=== PATIENT | female | born 1950 | race Caucasian/White ===

== ENCOUNTER 2021-09-12 09:32 | Outpatient (CLI) | payer BC, SELFPAY | END 2021-09-12 09:33 | disposition home or self-care (01) | LOC: AMB 09-14 21:39 | PROVIDERS: Visit Provider Emergency Medicine | DX: I95.9 Hypotension, unspecified (principal); R06.09 Other forms of dyspnea | CPT/HCPCS: A0425; A0427 ==

== ENCOUNTER 2021-09-12 09:50 | Inpatient (IN) | payer MEDICARE, BC, SELFPAY ==
[2021-09-12] VITALS (14 sets, daily range): BP systolic 65–123; BP diastolic 40–78; PULSE 101–156; RESP 12–30; TEMP 36.3–37.1; O2SAT 95–100; BMI 26.0
[2021-09-12] MEDS: 0.9 % SODIUM CHLORIDE 1000 ml 1,000 ML IV (10:00)
--- NOTE | 2021-09-12 10:02 | XR_ITS ---
Final Report Patient: AYSE NOGUEIRA Facility:?[facility] Patient ID:?[id number] Site Patient ID:?[id number]. Site :?[id number] Study:?XRay Chest Portable 1 View-09/12/2021 10:24:47 AM Ordering Physician:Enrrique Blount Final Report: INDICATION: Shortness of breath. TECHNIQUE: Chest 1 views. COMPARISON: Chest radiograph 07/31/2021. FINDINGS: Cardiovascular and mediastinum: Heart size and vasculature are normal in caliber and appearance. Lungs and pleural spaces: Stable asymmetric elevation of the left hemidiaphragm. Minimal opacities in the left lower lobe. Otherwise the lungs are clear. No pleural effusion. No pneumothorax. Bones and soft tissues: No significant findings. IMPRESSION: Stable asymmetric elevation of left hemidiaphragm with mild consolidation/atelectasis in the left lower lobe. Dictated by Juan Carlos Mack MD @ 09/12/2021 10:59:43 AM (Electronic Signature)
[2021-09-12 10:36] LABS: Slide Review Reflex No
[2021-09-12 10:39] LABS: Hematocrit 27.4 % (33.0-51.0); Hemoglobin* 8.7 gm/dL (12.0-16.0); Immature Granulocytes Abs Auto 0.01 K/uL (0.00-0.30); Lymphocytes Percent Auto 9.8 % (20-44); Mean Corpuscular HGB Conc 32 gm/dL (32-36); Mean Corpuscular Hemoglobin 30 pg (26-34); Mean Corpuscular Volume 95 fL (80-100); Monocytes Percent Auto 10.7 % (0.0-11.0); Platelet Count* 266 K/uL (140-440); RDW Coefficient of Variation % 18.9 % (11.5-15.5); White Blood Count* 2.05 K/uL (4.50-11.00)
[2021-09-12 10:57] LABS: Chloride* 103 mmol/L (96-114); Sodium* 133 mmol/L (135-149)
[2021-09-12 10:59] LABS: Bilirubin Direct* 0.5 mg/dL (0.0-0.5); Bilirubin Total* 0.8 mg/dL (0.1-1.5); Carbon Dioxide* 23 mmol/L (20-32); Creatinine* 0.7 mg/dL (0.5-1.5); Estimated Glomerular Filt Rate 93.56
[2021-09-12 11:00] LABS: Alanine Aminotransferase* 68 U/L (4-35); Alkaline Phosphatase* 70 U/L (40-150); Aspartate Amino Transferase* 26 U/L (12-35); Blood Urea Nitrogen* 12 mg/dL (7-30); Glucose* 113 mg/dL (60-115); Total Protein* 5.8 g/dL (6.0-8.3)
[2021-09-12 11:11] LABS: Troponin I* 0.01 ng/mL (0.01-0.04)
[2021-09-12 11:28] LABS: INR 1.47 (0.91-1.10); Prothrombin Time 18.3 Seconds
--- NOTE | 2021-09-12 12:20 | ED.NURSE ---
Pt placed on O2 for comfort by RT.
[2021-09-12 13:12] LABS: Troponin I* 0.02 ng/mL (0.01-0.04)
--- NOTE | 2021-09-12 13:46 | ED.NURSE ---
heads up given to spinning supervisor
--- NOTE | 2021-09-12 15:07 | ED.GENADULT ---
HPI - General Adult General Date Seen: 09/12/21 Chief complaint: Shortness of Breath/Dyspnea Stated complaint: Shortness of Breath Time Seen by Provider: 09/12/21 09:57 Source: patient, EMS, RN notes reviewed and old records reviewed Limitations: no limitations History of Present Illness HPI narrative: Patient is a 70-year-old woman with past medical history notable for relatively recently diagnosed lung cancer, DVT, PE, atrial fibrillation with rapid ventricular response on Eliquis. She had gone to the radiation clinic across the street today for her standard radiation treatment. On arrival there, she was noted to have a heart rate in the 160s and low blood pressures. They also reported that she had low oxygen levels, and they reported at 1 point that her pulse had dropped into the 30s EMS was called. They noted tachycardia, hypotension with blood pressures in the 80s, but they did not note any hypoxia. Patient reports that she has felt poorly, with weakness, lightheadedness, shortness of breath, but all of these symptoms are unchanged over the past days to weeks. She specifically denies any acute symptoms today. She says she has not had any chest pain or worsening of shortness of breath. She says she has not had any fevers or chills. She does say that she has had a productive cough and was started on antibiotics by her primary doctor. She is still taking those. She is supposed to be on metoprolol for atrial fibrillation but says she ran out of that a few days ago. She says that the prescription is at the pharmacy but she has not picked it up yet. She does say that her blood pressures have been running low, so her dose was decreased from 50 mg to 25 mg. She has been taking her Eliquis as prescribed. She has no sensation of palpitations or her heart racing. She denies vomiting or nausea, she has had a little bit of diarrhea, 2 or 3 times. Denies any black or bloody stools. No urinary symptoms. Related Data Home Medications Medication Instructions Recorded Confirmed Lactobacillus acidophilus 20 10 mg PO DAILY 09/12/21 09/12/21 billion cell capsule (Florajen Acidophilus) acetaminophen 500 mg tablet 1,000 mg PO .TIDAC PRN 09/12/21 09/12/21 apixaban 5 mg tablet (Eliquis) 5 mg PO BID 09/12/21 09/12/21 cholecalciferol (vitamin D3) 25 1,000 unit PO DAILY 09/12/21 09/12/21 mcg (1,000 unit) capsule famotidine 20 mg tablet 20 mg PO BID 09/12/21 09/12/21 ipratropium 0.5 mg-albuterol 3 mg 3 ml INHALATION QID 09/12/21 09/12/21 (2.5 mg base)/3 mL nebulization soln magnesium oxide 400 mg (241.3 mg 400 mg PO DAILY 09/12/21 09/12/21 magnesium) tablet melatonin 3 mg capsule 3 mg PO HS PRN 09/12/21 09/12/21 metoprolol succinate 50 mg 25 mg PO DAILY 09/12/21 09/12/21 tablet,extended release 24 hr (Toprol XL) potassium chloride 20 mEq 20 meq PO DAILY 09/12/21 09/12/21 tablet,extended release prochlorperazine maleate 10 mg 10 mg PO Q6H PRN 09/12/21 09/12/21 tablet Allergies Allergy/AdvReac Type Severity Reaction Status Date / Time aspirin Allergy Severe Difficulty Verified 09/12/21 10:01 Breathing ibuprofen Allergy Unknown Verified 09/12/21 10:01 Sulfa (Sulfonamide Allergy Unknown Verified 09/12/21 11:33 Antibiotics) venlafaxine Allergy Unknown Verified 09/12/21 14:17 codeine AdvReac Mild Verified 09/12/21 10:01 diclofenac AdvReac Unknown Verified 09/12/21 14:17 fentanyl AdvReac Unknown Verified 09/12/21 14:17 fluoxetine AdvReac Unknown Verified 09/12/21 14:17 fluticasone AdvReac Unknown Verified 09/12/21 14:17 loratadine AdvReac Unknown Verified 09/12/21 14:17 meloxicam AdvReac Unknown Verified 09/12/21 14:17 nicotine AdvReac Unknown Verified 09/12/21 14:17 paroxetine AdvReac Unknown Verified 09/12/21 14:17 piroxicam AdvReac Unknown Verified 09/12/21 14:17 pregabalin AdvReac Unknown Verified 09/12/21 14:17 Review of Systems Status of ROS: Reports: 10 or more systems reviewed and unremarkable except as noted in History and below [facility] Medical History (Updated 09/12/21 @ 16:07 by Jared Walker MD) Anemia COPD (chronic obstructive pulmonary disease) Dyslipidemia Heart failure Paroxysmal atrial fibrillation Pneumonia Post-tubal ligation syndrome Pulmonary embolism Small cell lung cancer Surgical History H/O breast biopsy H/O colonoscopy H/O hemorrhoidectomy History of dilatation and curettage S/P bronchoscopy with biopsy Status post ectopic Social History (Updated 09/12/21 @ 16:25 by Jared Walker MD) Narrative: patient is from [place] where she lives alone. She was hospitalized at [facility] in [place] for most of the month of July and has been rehabilitating with her son and [id number] in [place] since her hospitalization. She is getting radiation treatment in [place] and chemotherapy with Dr. Lagunas in [place]. Physical activity type details: previously walked independently. During long hospitalization in July she was using a walker. She is now transition to a walking stick. She reports her left knee is sometimes weak and unstable. Smoking Status: Former smoker What tobacco products do you use: cigarettes Smoking quit date/years: <= 15 years ago Do you use any of these nicotine containing products: None Second hand tobacco smoke exposure: No How often do you have a drink containing alcohol: never AUDIT-C Alcohol total score: 0 Non-prescribed substance use: denies use Exam Const: Vital Signs, click to edit/add: Vital Signs - 24 hr 09/12/21 09:51 09/12/21 10:00 09/12/21 10:24 Temperature 97.3 F L Pulse Rate [Apical ] 146 H 156 H 135 H Pulse Rate [orthos tatic lying Apical ] Pulse Rate [orthos tatic sitting Apic al] Pulse Rate [orthos tatic standing Api ramesh] Respiratory Rate 28 H 30 H 18 Blood Pressure [Ri ght Upper Arm] 98/75 84/48 L 85/68 L Blood Pressure [or thostatic lying Ri ght Arm] Blood Pressure [or thostatic sitting Right Arm] Blood Pressure [or thostatic standing Right Arm] Pulse Oximetry 95 96 100 09/12/21 11:30 09/12/21 12:00 09/12/21 12:40 Temperature Pulse Rate [Apical ] 151 H 147 H 110 H Pulse Rate [orthos tatic lying Apical ] Pulse Rate [orthos tatic sitting Apic al] Pulse Rate [orthos tatic standing Api ramesh] Respiratory Rate 18 12 21 Blood Pressure [Ri ght Upper Arm] 79/59 L 65/40 L 97/60 Blood Pressure [or thostatic lying Ri ght Arm] Blood Pressure [or thostatic sitting Right Arm] Blood Pressure [or thostatic standing Right Arm] Pulse Oximetry 100 100 99 09/12/21 12:45 09/12/21 12:50 09/12/21 14:10 Temperature Pulse Rate [Apical ] 108 H 109 H Pulse Rate [orthos tatic lying Apical ] 106 H Pulse Rate [orthos tatic sitting Apic al] 110 H Pulse Rate [orthos tatic standing Api ramesh] 115 H Respiratory Rate 28 H 22 Blood Pressure [Ri ght Upper Arm] 102/66 86/48 L Blood Pressure [or thostatic lying Ri ght Arm] 93/50 L Blood Pressure [or thostatic sitting Right Arm] 94/62 Blood Pressure [or thostatic standing Right Arm] 84/56 L Pulse Oximetry 99 99 Documenting provider has reviewed patient's vital signs: yes Common normals: no apparent distress and oriented x3 General appearance: cooperative and frail appearing Nutritional appearance: thin Orientation/consciousness: Yes awake, Yes oriented to person, Yes oriented to place and Yes oriented to time HENMT: Common normals: normocephalic Head and scalp: normal to inspection (Hair loss due to chemotherapy) and normocephalic Face and sinus: normal facial exam Nose: nares normal Mouth: oral and palatal mucosa normal and lip normal Other: Mucous membranes a little dry. Eye: Common normals: PERRL, conjunctivae normal and no scleral icterus Conjunctiva: conjunctiva(e) normal Pupil: PERRL Neck & C-Spine: Common normals: no lymphadenopathy, supple, no meningeal signs and no JVD Chest: Common normals: inspection of chest normal Resp: Effort & inspection: able to speak in complete sentences Auscultation: diminished lung sounds (Left base, associated with some coarse crackles) Other: Lungs otherwise clear. Tachypneic, no increased work of breathing Cardio: Common normals: no JVD and no murmurs Rate: tachycardic Peripheral pulses: radial pulses present Other: Tachycardic and irregular. GI: Common normals: Normal to inspection, nondistended, normoactive bowel sounds present and soft to palpation Palpation: soft Rectal Exam - Female: normal sphincter tone Other: Light brown stool, heme-negative. : Common normals: no CVA tenderness Bladder/kidney exam: no CVA tenderness Back & Pelvis: Common normals: no CVA tenderness Lumbar spine/lower back: normal to inspection Extremity: Common normals: normal to inspection and no pedal edema Neuro: Common normals: oriented x3 Sensorium/orientation: awake, oriented to person, oriented to place and oriented to time Meningeal signs: no meningeal signs Speech: speech normal Psych: Common normals: mental status grossly normal, thought process normal and cooperative Thought process: normal thought process Skin: Common normals: no rashes or lesions noted, no wounds, no jaundice and no petechiae General skin exam: no rashes or lesions noted Course Course Hospital Course: On initial arrival, paramedics had started an IV and she had had about 100 mL of fluid at that time. We started a 2nd IV, lisa blood and blood cultures. We gave her a total of about a L and half of normal saline. I did look at her heart with the bedside ultrasound. She has reasonable ventricular squeeze, I did not see significant pericardial effusion. IVC was compressible. No intra-abdominal free fluid. She did not have significant response to IV fluids, and continued to have blood pressures in the 80s to low 90s. Her heart rate remained in atrial fibrillation running in the 140s to 160s. Labs are overall fairly unremarkable. Her white blood cell count is low at 2, absolute neutrophil count is 1600. Hemoglobin is 8.7. Review of her records from [place] shows a steady decline in her hemoglobin from 11 and half down to 9.3 over the past month. She is heme negative here and denies any GI blood loss at home. She is not febrile, and and there is no clear source of infection here. I did draw blood cultures however. A chest x-ray by my review shows chronic findings at the left base, but without any significant new infiltrate. The final radiology report is read as stable asymmetric elevation of the left hemidiaphragm with mild consolidation or atelectasis in left lower lobe. Plan had been to cardiovert her, thinking that perhaps her rapid AFib was contributing to her hypotension. I did talk with Cardiology at [facility], she had an echo there July 20 which showed an injection fraction of 50%, they repeated it July 29 in her ejection fraction at that time was 42%. He did recommend cardioversion to improve her blood pressure. However, just as we were getting ready to cardiovert, she converted to sinus rhythm. Her heart rate remained in the low 100 range, and while her blood pressures improved somewhat, she still was in the low 90s, and on standing dropped into the 80s. She was somewhat lightheaded. I do not think she is able to go home at this point based on somewhat low blood pressures. Would recommend admission to the hospital for observation, consider antibiotics for possible pneumonia. In talking with the hospitalist, Dr. Walker, he agrees with adding antibiotics; we will go ahead and give Zosyn here given that patient has been on amoxicillin or Augmentin, and was hospitalized in July. Given that blood pressures are not markedly improved after conversion to sinus rhythm I do not think her primary problem was depressed cardiac function secondary to rapid ventricular rate/atrial fibrillation. Abscess is possible, though she did not show any improvement with fluid bolus. Cultures pending. Hemoglobin has decreased from the beginning of the month, although it has been a slow decrease, more likely to be related to her chemotherapy I think then in acute blood loss. No obvious GI blood losses and she does not report any other blood loss. I do not see a clear reason to hold or reverse her Eliquis at this time. For now, I think continue to hydrate, IV antibiotics, await cultures. Observation in the hospital. Vital Signs Vital signs: Initial Vital Signs Respiratory Effort Short of Breath 09/12/21 09:50 Respiratory Depth Shallow 09/12/21 09:50 Respiratory Pattern 09/12/21 09:50 Vital Signs Temperature 97.3 F L 09/12/21 09:51 Pulse Rate 146 H 09/12/21 09:51 Respiratory Rate 28 H 09/12/21 09:51 Blood Pressure 98/75 09/12/21 09:51 Pulse Oximetry 95 09/12/21 09:51 Temperature 97.3 F L 09/12/21 09:51 Pulse Rate 106 H 09/12/21 14:10 Respiratory Rate 22 09/12/21 12:50 Blood Pressure 93/50 L 09/12/21 14:10 Pulse Oximetry 99 09/12/21 12:50 Medical Decision Making Lab Data Labs: Lab Results 09/12/21 09/12/21 09/12/21 Range/Units 10:28 10:28 10:28 WBC 2.05 L (4.50-11.00) K/uL RBC 2.90 L (4.00-5.20) m/uL Hgb 8.7 L (12.0-16.0) gm/dL Hct 27.4 L (33.0-51.0) % MCV 95 (80-100) fL MCH 30 (26-34) pg MCHC 32 (32-36) gm/dL RDW Coeff of Jaclyn 18.9 H (11.5-15.5) % Plt Count 266 (140-440) K/uL Neut % (Auto) 79.0 H (42.0-72.0) % Lymph % (Auto) 9.8 L (20-44) % Pettis % (Auto) 10.7 (0.0-11.0) % Eos % (Auto) 0.0 (0.0-7.0) % Baso % (Auto) 0.0 (0.0-3.0) % Neut # (Auto) 1.60 L (1.7-7.0) K/uL Lymph # (Auto) 0.20 L (0.90-2.90) K/uL Pettis # (Auto) 0.20 (0.00-0.90) K/UL Eos # (Auto) 0.00 (0.00-0.50) K/uL Baso # (Auto) 0.00 (0.00-0.30) K/uL Abs Immat Gran (auto) 0.01 (0.00-0.30) K/uL INR 1.47 H (0.91-1.10) Sodium 133 L (135-149) mmol/L Potassium 4.0 (3.6-5.1) mmol/L Chloride 103 (96-114) mmol/L Carbon Dioxide 23 (20-32) mmol/L BUN 12 (7-30) mg/dL Creatinine 0.7 (0.5-1.5) mg/dL Glucose 113 (60-115) mg/dL Calcium 8.0 L (8.4-10.6) mg/dL Total Bilirubin 0.8 (0.1-1.5) mg/dL Direct Bilirubin 0.5 (0.0-0.5) mg/dL AST 26 (12-35) U/L ALT 68 H (4-35) U/L Alkaline Phosphatase 70 (40-150) U/L Troponin I 0.01 (0.01-0.04) ng/mL Total Protein 5.8 L (6.0-8.3) g/dL Albumin 3.0 L (3.3-5.0) g/dL 09/12/21 Range/Units 12:33 WBC (4.50-11.00) K/uL RBC (4.00-5.20) m/uL Hgb (12.0-16.0) gm/dL Hct (33.0-51.0) % MCV (80-100) fL MCH (26-34) pg MCHC (32-36) gm/dL RDW Coeff of Jaclyn (11.5-15.5) % Plt Count (140-440) K/uL Neut % (Auto) (42.0-72.0) % Lymph % (Auto) (20-44) % Pettis % (Auto) (0.0-11.0) % Eos % (Auto) (0.0-7.0) % Baso % (Auto) (0.0-3.0) % Neut # (Auto) (1.7-7.0) K/uL Lymph # (Auto) (0.90-2.90) K/uL Pettis # (Auto) (0.00-0.90) K/UL Eos # (Auto) (0.00-0.50) K/uL Baso # (Auto) (0.00-0.30) K/uL Abs Immat Gran (auto) (0.00-0.30) K/uL INR (0.91-1.10) Sodium (135-149) mmol/L Potassium (3.6-5.1) mmol/L Chloride (96-114) mmol/L Carbon Dioxide (20-32) mmol/L BUN (7-30) mg/dL Creatinine (0.5-1.5) mg/dL Glucose (60-115) mg/dL Calcium (8.4-10.6) mg/dL Total Bilirubin (0.1-1.5) mg/dL Direct Bilirubin (0.0-0.5) mg/dL AST (12-35) U/L ALT (4-35) U/L Alkaline Phosphatase (40-150) U/L Troponin I 0.02 (0.01-0.04) ng/mL Total Protein (6.0-8.3) g/dL Albumin (3.3-5.0) g/dL Critical Care Time Critical Care Time Total Critical Care Time in Minutes: 60 Discharge Plan Discharge Clinical Impression: Atrial fibrillation with RVR Patient Disposition: Admitted As Inpatient Condition: Improved
--- NOTE | 2021-09-12 15:16 | RESP.RT ---
Pt seen in ED. RR 20-28 Pt tachypneic at times, with speech. SPO2 on RA was 94%/ Low flow oxygen at 2L given for comfort. 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 Pt states she has been coughing up foul phlegm. Encourage ambulation or sitting up in chair. BBS decreased with coarse Rales in bases. IS pt.
--- NOTE | 2021-09-12 15:40 | ED.NURSE ---
Admit request sent, m/s aware.
--- NOTE | 2021-09-12 15:44 | W.PC.EDHO ---
Primary Language: Yoruba Preferred Language: Orientation Status: [X] Alert & Oriented [] Slight Confusion [] Known Dx Dementia Transfers By: [X] Assist of 1 [] Assist of 2 [] Lift IV Size: 18g IV Site Location: L-AC Pt is very kind. Has some c/o pain on her bottom (possibly a sore?) per her report. Active Medications Generic Name Dose Route Start Last Admin Trade Name Freq PRN Reason Stop Dose Admin Acetaminophen 650 - 975 mg 09/12/21 15:05 Acetaminophen 325 Mg Tablet PO Q6H PRN Bisacodyl 10 mg 09/12/21 15:05 Bisacodyl 10 Mg Supp.Rect SC DAILY PRN Melatonin 3 mg 09/12/21 15:05 Melatonin 3 Mg Tablet PO HS PRN Oxycodone HCl 2.5 - 5 mg 09/12/21 15:05 Oxycodone 5 Mg Tablet PO Q4H PRN Pain Polyethylene Glycol 17 gm 09/12/21 15:05 Polyethylene Glycol 3350 17 Gm Pack PO DAILY PRN Senna/Docusate Sodium 1 tab 09/12/21 15:05 Sennosides/Docusate Tablet PO DAILY PRN Description of Symptoms ED Triage Present Problem Pt arrives from radiation clinic for dyspnea, Description tachycardia, and weakness. Pain Pain Description [Medial Dull, Achy Buttock] Pain Intensity [Medial Buttock 3 ] Pain Scale Used [Medial Numeric (1 - 10) Buttock] Oxygen Administration Pulse Oximetry 99 Pulse Oximetry 99 Pulse Oximetry 99 Pulse Oximetry 100 Pulse Oximetry 100 Pulse Oximetry 100 Pulse Oximetry 96 Pulse Oximetry 96 Pulse Oximetry 95 Oxygen Delivery Method Nasal Cannula Oxygen Delivery Method Nasal Cannula Oxygen Delivery Method Nasal Cannula Oxygen Delivery Method Nasal Cannula Oxygen Delivery Method Nasal Cannula Oxygen Delivery Method Nasal Cannula Oxygen Delivery Method Nasal Cannula Oxygen Delivery Method Nasal Cannula Oxygen Delivery Method Room Air Oxygen Flow Rate 2 Oxygen Flow Rate 2 Oxygen Flow Rate 2 Oxygen Flow Rate 2 Oxygen Flow Rate 2 Oxygen Flow Rate 2 Oxygen Flow Rate 2 Oxygen Flow Rate 2 Cardiac Monitoring EKG Method 12 Lead EKG Method 12 Lead EKG Method 12 Lead EKG Method 12 Lead
[2021-09-12 16:21] LABS: SARS PCR* Negative SARS-CoV-2 (Negative)
--- NOTE | 2021-09-12 16:24 | PM.IMHP1 ---
Hospitalist- H&P: HPI History of Present Illness Time Seen by Provider: 15:14 Date Seen: 09/12/21 Chief complaint: Shortness of Breath Narrative: Shannon Castrejon is a 70 year old female presents with worsening dyspnea. Patient has recently been diagnosed with squamous cell carcinoma of the left lung. She had collapse of her left lung in July. She was treated at [facility] in [place] with bronchoscopic surgery. They debulked the tumor and placed a silicone stent in the left mainstem bronchus. she also had pulmonary emboli and was started with treatment with Eliquis. She also had paroxysmal atrial fibrillation and was placed on metoprolol. She has been undergoing chemotherapy with carboplatin and paclitaxel and getting radiation therapy. She today had her 29th of 30 radiation treatments. She was supposed to get her final chemotherapy today but came to the emergency room because of dyspnea instead. She has had a bad cough and she tells me she has a foul-smelling sputum. It is yellow in color. She has not had any fever but she does have chills. She does have COPD from smoking. Recently stop smoking. she has been treated recently with an antibiotic , possibly amoxicillin, for her productive cough and discolored sputum. Review of Systems Const: Reports: chills ( Episodic chills), fatigue and malaise; Denies: fever ENMT: Reports: throat pain and other ( patient reports chest pain when she drinks cold liquids) Cardio: Reports: lightheadedness and shortness of breath with exertion; Denies: palpitations ( she is not aware of atrial fibrillation with rapid or irregular pulse), swelling of feet/ankles or shortness of breath when lying down Resp: Reports: shortness of breath GI: Reports: diarrhea ( possibly due to chemotherapy), constipation ( probably due to oxycodone) and other ( loss of appetite) : Denies: painful urination or urinary frequency Neuro: Denies: headache Psych: Reports: anxiety Endo: Reports: fatigue PFSH [facility] Medical History (Updated 09/12/21 @ 16:07 by Jared Walker MD) Anemia COPD (chronic obstructive pulmonary disease) Dyslipidemia Heart failure Paroxysmal atrial fibrillation Pneumonia Post-tubal ligation syndrome Pulmonary embolism Small cell lung cancer Surgical History H/O breast biopsy H/O colonoscopy H/O hemorrhoidectomy History of dilatation and curettage S/P bronchoscopy with biopsy Status post ectopic Social History Narrative: patient is from [place] where she lives alone. She was hospitalized at [facility] in [place] for most of the month of July and has been rehabilitating with her son and [id number] in [place] since her hospitalization. She is getting radiation treatment in [place] and chemotherapy with Dr. Lagunas in [place]. Physical activity type details: previously walked independently. During long hospitalization in July she was using a walker. She is now transition to a walking stick. She reports her left knee is sometimes weak and unstable. Smoking Status: Former smoker What tobacco products do you use: cigarettes Smoking quit date/years: <= 15 years ago Do you use any of these nicotine containing products: None Second hand tobacco smoke exposure: No How often do you have a drink containing alcohol: never AUDIT-C Alcohol total score: 0 Non-prescribed substance use: denies use Narrative Narrative: patient is from [place] where she lives alone. She was hospitalized at [facility] in [place] for most of the month of July and has been rehabilitating with her son and [id number] in [place] since her hospitalization. She is getting radiation treatment in [place] and chemotherapy with Dr. Lagunas in [place]. Physical and Leisure Activity Physical activity type details: previously walked independently. During long hospitalization in July she was using a walker. She is now transition to a walking stick. She reports her left knee is sometimes weak and unstable. Tobacco Smoking Status: Former smoker What tobacco products do you use: cigarettes Smoking quit date/years: <= 15 years ago Do you use any of these nicotine containing products: None Second hand tobacco smoke exposure: No Alcohol - AUDIT-C How often do you have a drink containing alcohol: never AUDIT-C Alcohol total score: 0 Source: Developed by Caity Peace DR, et al (1998). The AUDIT alcohol consumption questions (AUDIT-C): An effective brief screening test for problem drinking. [employer] (ACQUIP). [employer]. 158:1789-95. Drugs Non-prescribed substance use: denies use Meds Home Medications and Allergies Home Medications Medication Instructions Recorded Confirmed Type Lactobacillus acidophilus 20 10 mg PO DAILY 09/12/21 09/12/21 History billion cell capsule (Florajen Acidophilus) acetaminophen 500 mg tablet 1,000 mg PO .TIDAC PRN 09/12/21 09/12/21 History apixaban 5 mg tablet (Eliquis) 5 mg PO BID 09/12/21 09/12/21 History cholecalciferol (vitamin D3) 25 1,000 unit PO DAILY 09/12/21 09/12/21 History mcg (1,000 unit) capsule famotidine 20 mg tablet 20 mg PO BID 09/12/21 09/12/21 History ipratropium 0.5 mg-albuterol 3 mg 3 ml INHALATION QID 09/12/21 09/12/21 History (2.5 mg base)/3 mL nebulization soln magnesium oxide 400 mg (241.3 mg 400 mg PO DAILY 09/12/21 09/12/21 History magnesium) tablet melatonin 3 mg capsule 3 mg PO HS PRN 09/12/21 09/12/21 History metoprolol succinate 50 mg 25 mg PO DAILY 09/12/21 09/12/21 History tablet,extended release 24 hr (Toprol XL) potassium chloride 20 mEq 20 meq PO DAILY 09/12/21 09/12/21 History tablet,extended release prochlorperazine maleate 10 mg 10 mg PO Q6H PRN 09/12/21 09/12/21 History tablet Allergies Allergy/AdvReac Type Severity Reaction Status Date / Time aspirin Allergy Severe Difficulty Verified 09/12/21 10:01 Breathing ibuprofen Allergy Unknown Verified 09/12/21 10:01 Sulfa (Sulfonamide Allergy Unknown Verified 09/12/21 11:33 Antibiotics) venlafaxine Allergy Unknown Verified 09/12/21 14:17 codeine AdvReac Mild Verified 09/12/21 10:01 diclofenac AdvReac Unknown Verified 09/12/21 14:17 fentanyl AdvReac Unknown Verified 09/12/21 14:17 fluoxetine AdvReac Unknown Verified 09/12/21 14:17 fluticasone AdvReac Unknown Verified 09/12/21 14:17 loratadine AdvReac Unknown Verified 09/12/21 14:17 meloxicam AdvReac Unknown Verified 09/12/21 14:17 nicotine AdvReac Unknown Verified 09/12/21 14:17 paroxetine AdvReac Unknown Verified 09/12/21 14:17 piroxicam AdvReac Unknown Verified 09/12/21 14:17 pregabalin AdvReac Unknown Verified 09/12/21 14:17 Exam Narrative: Exam Narrative: She is alert and in no distress. She gives her own history. She struggles to recall significant details of recent past medical history including medications. She is oriented to her circumstances. Her speech is fluent. Eyes are normal. There is no facial asymmetry. Oropharynx with moist mucous membranes. No mucosal abnormalities. Neck is supple without mass or adenopathy. Respirations with diminished breath sounds in all lung [place] no marked prolonged expiratory phase. No wheezing. She has scattered crackles in left lung field. Breath sounds are diminished in the left lung compared to the right. Cardiovascular: S1, S2, regular tachycardia. No murmur gallop or rub. Abdomen: Bowel sounds active. Abdomen is soft without tenderness or mass. External genitalia normal. Extremities with intact pulses and sensation. Feet are somewhat cool to touch. No edema And no tenderness.. Const: Vital Signs, click to edit/add: Vital Signs - 24 hr 09/12/21 09:51 09/12/21 10:00 09/12/21 10:24 Temperature 97.3 F L Pulse Rate [Apical ] 146 H 156 H 135 H Pulse Rate [orthos tatic lying Apical ] Pulse Rate [orthos tatic sitting Apic al] Pulse Rate [orthos tatic standing Api ramesh] Respiratory Rate 28 H 30 H 18 Blood Pressure [Ri ght Upper Arm] 98/75 84/48 L 85/68 L Blood Pressure [or thostatic lying Ri ght Arm] Blood Pressure [or thostatic sitting Right Arm] Blood Pressure [or thostatic standing Right Arm] Pulse Oximetry 95 96 100 09/12/21 11:30 09/12/21 12:00 09/12/21 12:40 Temperature Pulse Rate [Apical ] 151 H 147 H 110 H Pulse Rate [orthos tatic lying Apical ] Pulse Rate [orthos tatic sitting Apic al] Pulse Rate [orthos tatic standing Api ramesh] Respiratory Rate 18 12 21 Blood Pressure [Ri ght Upper Arm] 79/59 L 65/40 L 97/60 Blood Pressure [or thostatic lying Ri ght Arm] Blood Pressure [or thostatic sitting Right Arm] Blood Pressure [or thostatic standing Right Arm] Pulse Oximetry 100 100 99 09/12/21 12:45 09/12/21 12:50 09/12/21 14:10 Temperature Pulse Rate [Apical ] 108 H 109 H Pulse Rate [orthos tatic lying Apical ] 106 H Pulse Rate [orthos tatic sitting Apic al] 110 H Pulse Rate [orthos tatic standing Api ramesh] 115 H Respiratory Rate 28 H 22 Blood Pressure [Ri ght Upper Arm] 102/66 86/48 L Blood Pressure [or thostatic lying Ri ght Arm] 93/50 L Blood Pressure [or thostatic sitting Right Arm] 94/62 Blood Pressure [or thostatic standing Right Arm] 84/56 L Pulse Oximetry 99 99 Hospitalist - H&P: Result Labs Labs: Short CBC 09/12/21 Range/Units 10:28 WBC 2.05 L (4.50-11.00) K/uL Hgb 8.7 L (12.0-16.0) gm/dL Hct 27.4 L (33.0-51.0) % Plt Count 266 (140-440) K/uL BMP 09/12/21 10:28 Sodium 133 L Potassium 4.0 Chloride 103 Carbon Dioxide 23 BUN 12 Creatinine 0.7 Glucose 113 Calcium 8.0 L Cardiac Enzymes 09/12/21 09/12/21 Range/Units 10:28 12:33 Troponin I 0.01 0.02 (0.01-0.04) ng/mL Liver Function 09/12/21 Range/Units 10:28 Total Bilirubin 0.8 (0.1-1.5) mg/dL Direct Bilirubin 0.5 (0.0-0.5) mg/dL AST 26 (12-35) U/L ALT 68 H (4-35) U/L Alkaline Phosphatase 70 (40-150) U/L Albumin 3.0 L (3.3-5.0) g/dL Assessment and Plan Assessment and plan (1) Paroxysmal atrial fibrillation: Status: Acute (2) Atrial fibrillation with RVR: Status: Acute (3) Pneumonia: Status: Acute (4) Anemia: Status: Acute Plan acute on chronic dyspnea related to a combination of factors including atrial fibrillation with rapid ventricular response, possible pneumonia with recent antibiotic therapy and recent hospitalization , COPD, cancer obstructing her left mainstem bronchus status post treatment, acute on chronic anemia. I suspect that she is in an out of atrial fibrillation with RVR more often than she is aware. She is not aware of her atrial fibrillation except to the extent that she gets dyspneic when she is in AFib with RVR. I spoke with Cardiology at [facility] who recommended using metoprolol for rate control and managing her low blood pressure with fluids. Continue close monitoring of heart rate and blood pressure. Will treat her with antibiotics for possible pneumonia given her lung cancer history and ongoing problems with discolored and malodorous sputum. Will also monitor her hemoglobin and monitor for any bleeding. I suspect her hemoglobin may be low due to bone marrow suppression from her chemotherapy.
[2021-09-12 16:36] LABS: Immature Reticulocyte Fraction 13.1 % (3.0-15.9); Reticulocyte Percent 0.4 % (0.5-2.0); Reticulocytes Absolute 0.01 # (0.03-0.08)
--- NOTE | 2021-09-12 16:53 | ED.NURSE ---
Pt voided 250cc. Urine to lab.
[2021-09-12 17:00] LABS: Appearance Urine Clear (Clear); Bilirubin Urine Negative (Negative); Color Urine Yellow (Yellow); Glucose Urine Negative (Negative); Ketones Urine Negative (Negative); Leukocyte Esterase Urine Negative (Negative); Nitrite Urine Negative (Negative); Protein Urine Negative (Negative); Specific Gravity Urine 1.015 (1.000-1.030); Urobilinogen Urine 0.2 (0.2-1.0); pH Urine 6.5 (5.0-8.5)
[2021-09-12 17:04] LABS: Blood Urine Trace-Intact (Negative); RBC Urine 0-2 (0-2); Squamous Epithelial Cell Urine Few (None-Few)
[2021-09-12 17:05] LABS: Reticulocyte Hemoglobin Equivi 16.2 pg (29.0-35.0)
[2021-09-12] MEDS: PIPERACILLIN/TAZOBACTAM 3.375 GM in 0.9 % SODIUM CHLORIDE Mini-bag 100 ML IVPB (19:33)
[2021-09-12] MEDS: ACETAMINOPHEN 500 MG TABLET 1000 MG PO (19:45)
[2021-09-12] MEDS: APIXABAN 5 MG TABLET PO (21:01)
[2021-09-12] MEDS: FAMOTIDINE 20 MG TABLET PO (21:01)
[2021-09-12] MEDS: IPRAT-ALBUT 0.5-2.5 MG/3 ML NEB 1 NEB IH (21:01)
[2021-09-13] VITALS (9 sets, daily range): BP systolic 111–127; BP diastolic 56–77; PULSE 100–116; RESP 18–24; TEMP 36.4–36.8; O2SAT 94–99
[2021-09-13] MEDS: PIPERACILLIN/TAZOBACTAM 3.375 GM in 0.9 % SODIUM CHLORIDE Mini-bag 100 ML IVPB ×4 (01:12→19:04)
[2021-09-13] MEDS: SODIUM CHLORIDE 0.9 % (FLUSH) 10 ML SYRINGE IVF ×3 (01:59→20:25)
--- NOTE | 2021-09-13 05:29 | PC.NURSE ---
Addendum entered by Guero Barrios RN 09/13/21 07:19: Tylenol given for sore throat radiating to ear Original Note: VSS RA. Tele Sinus Tach about 100 w/occ PAC. Lungs sound has a rub on the left. Has a congested cough cream sputum. Up ad chely in room using her own walking stick ind w/cares.
[2021-09-13 06:54] LABS: Slide Review Reflex No
[2021-09-13 07:11] LABS: Basophils Percent Auto 0.7 % (0.0-3.0); Eosinophils Percent Auto 0.7 % (0.0-7.0); Hematocrit 25.3 % (33.0-51.0); Hemoglobin* 8.3 gm/dL (12.0-16.0); Immature Granulocytes Abs Auto 0.01 K/uL (0.00-0.30); Lymphocytes Percent Auto 16.4 % (20-44); Mean Corpuscular HGB Conc 33 gm/dL (32-36); Mean Corpuscular Hemoglobin 31 pg (26-34); Mean Corpuscular Volume 93 fL (80-100); Monocytes Percent Auto 17.1 % (0.0-11.0); Neutrophils Percent Auto 64.4 % (42.0-72.0); Platelet Count* 244 K/uL (140-440); RDW Coefficient of Variation % 18.8 % (11.5-15.5); Red Blood Count 2.72 m/uL (4.00-5.20)
[2021-09-13] MEDS: ACETAMINOPHEN 325 MG TABLET PO (07:12)
[2021-09-13 07:32] LABS: Chloride* 105 mmol/L (96-114); Sodium* 134 mmol/L (135-149)
[2021-09-13 07:33] LABS: Potassium* 3.8 mmol/L (3.6-5.1)
[2021-09-13 07:35] LABS: Carbon Dioxide* 24 mmol/L (20-32); Creatinine* 0.6 mg/dL (0.5-1.5); Est. Creatinine Clearance* 43.92
[2021-09-13 07:36] LABS: Blood Urea Nitrogen* 10 mg/dL (7-30); Calcium* 8.5 mg/dL (8.4-10.6); Glucose* 91 mg/dL (60-115)
[2021-09-13] MEDS: FAMOTIDINE 20 MG TABLET PO ×2 (09:02→20:21)
[2021-09-13] MEDS: MAGNESIUM OXIDE 400 MG TABLET PO (09:03)
[2021-09-13] MEDS: METOPROLOL SUCCINATE (XL) 50 MG TAB 25 MG PO (09:03)
[2021-09-13] MEDS: APIXABAN 5 MG TABLET PO ×2 (09:04→20:22)
[2021-09-13] MEDS: POTASSIUM CHLORIDE 10 MEQ CAPSULE ER 20 MEQ PO (09:05)
[2021-09-13] MEDS: IPRAT-ALBUT 0.5-2.5 MG/3 ML NEB 1 NEB IH ×4 (09:06→20:24)
[2021-09-13] MEDS: LACTOBACILLUS ACIDOPHILUS 1 TABLET 1 TAB PO (09:10)
--- NOTE | 2021-09-13 15:21 | PM.IMPN1 ---
Progress Note: A&P Assessment and plan (1) Squamous cell lung cancer: Status: Acute Assessment and Plan: Plan is speak with her oncology team about any break or possible cessation of chemotherapy. She received 29 of a 30 radiation treatments. Patient is interested in taking a break and moving on to immunotherapy if indicated. (2) Pneumonia: Status: Acute Assessment and Plan: Was previously postobstructive, related to newfound left lung cancer. However she is still coughing up malodorous copious sputum. It is difficult to track her response with a white blood cell count given her history of chemotherapy and chemotherapy-induced neutropenia. She has not had any fever. Going to reimage her chest today with a chest CT and following with procalcitonin. She is currently on broad-spectrum antibiotics was Zosyn q.6. (3) Atrial fibrillation with RVR: Status: Acute Assessment and Plan: Currently now in sinus. I have increased her metoprolol to 25 b.i.d. with hold parameters. I switched also from this Toprol XL succinate to the metoprolol tartrate. (4) Chemotherapy induced neutropenia: Status: Acute Assessment and Plan: Noted following. (5) History of pulmonary embolism: Status: Acute Assessment and Plan: Noted following. Time Spent With Patient Total time spent: Thirty-five Subjective Interval history: Daily Progress Note - Hospital Medicine Day #: 2 CC: Hypotension, AFib RVR, small cell lung cancer OVERNIGHT UPDATES FROM STAFF & MED, LAB, IMAGING UPDATES This is a 70-year-old with locally extensive squamous cell lung cancer of the left lung diagnosed earlier this year who presented after feeling poorly during radiation yesterday. She was found to be hypotensive and in AFib with RVR. She is neutropenic and anemic from her current chemotherapy. She converted to sinus yesterday in the ED spontaneously. She feels lot better today with a better blood pressure and pulse. There over writing issues continue to be the effects of chemotherapy, planning for returning home which is [place] and some social stressors living with her son. 120/72, 126/68 Pulse has been low 100s Respiratory rate 18 Pulse ox 96% on room air Weight 66.6 kilos Neutropenia ANC of 896 Hemoglobin 8.3 Platelet count 244 Normal electrolytes with just a very mild hyponatremia Procalcitonin pending Chest x-ray yesterday Stable asymmetric elevation of the left hemidiaphragm Review of Systems: See subjective Cardiac: No new chest pain/pressure/palpitations. Respiratory: no new dyspnea. GI: No abdominal bloating Objective: Chronically ill-appearing. Thin, Alopecia, pale. Vitals: see above Lungs: No respiratory distress. Diffuse rhonchi at the bases Cardiac: S1S2. Disposition/Potential discharge - Likely to return to previous living situation. Total time is 35 minutes with greater than 50% spent in counseling and coordination of care. Exam Const: Vital Signs, click to edit/add: Vital Signs - 24 hr 09/12/21 16:50 09/12/21 17:19 09/12/21 18:27 Temperature 98.8 F Pulse Rate Pulse Rate [Apical ] 101 H Pulse Rate [Right] 103 H Respiratory Rate 20 16 Blood Pressure [Ri ght Arm] 123/78 Blood Pressure [Ri ght Upper Arm] 119/57 L Pulse Oximetry 95 96 95 09/12/21 21:04 09/12/21 23:06 09/13/21 00:43 Temperature 98.8 F 97.8 F Pulse Rate 101 H Pulse Rate [Apical ] Pulse Rate [Right] 103 H Respiratory Rate 24 Blood Pressure [Ri ght Arm] 111/66 Blood Pressure [Ri ght Upper Arm] Pulse Oximetry 94 09/13/21 03:02 09/13/21 08:00 09/13/21 08:30 Temperature 98.2 F 97.8 F Pulse Rate 109 H Pulse Rate [Apical ] Pulse Rate [Right] 103 H 103 H 106 H Respiratory Rate 20 22 Blood Pressure [Ri ght Arm] 119/71 126/68 Blood Pressure [Ri ght Upper Arm] Pulse Oximetry 95 94 09/13/21 14:34 Temperature 97.6 F Pulse Rate Pulse Rate [Apical ] Pulse Rate [Right] 100 Respiratory Rate 18 Blood Pressure [Ri ght Arm] 120/72 Blood Pressure [Ri ght Upper Arm] Pulse Oximetry 96 Labs Labs: Laboratory Results - last 24 hr 09/12/21 09/12/21 09/12/21 10:28 15:21 16:30 WBC RBC Hgb Hct MCV MCH MCHC RDW Coeff of Jaclyn Plt Count Neut % (Auto) Lymph % (Auto) Barton % (Auto) Eos % (Auto) Baso % (Auto) Neut # (Auto) Lymph # (Auto) Barton # (Auto) Eos # (Auto) Baso # (Auto) Abs Immat Gran (auto) Absolute Retic 0.01 L Percent Retic 0.4 L Immature Retic Fraction 13.1 Retic Hgb Equivalent 16.2 L Sodium Potassium Chloride Carbon Dioxide BUN Creatinine Estimated Creat Clear Glucose Calcium Urine Color Yellow Urine Appearance Clear Urine pH 6.5 Ur Specific Ryan 1.015 Urine Protein Negative Urine Glucose (UA) Negative Urine Ketones Negative Urine Blood Trace-Intact A Urine Nitrite Negative Urine Bilirubin Negative Urine Urobilinogen 0.2 Ur Leukocyte Esterase Negative Urine RBC 0-2 Urine WBC 2-5 Ur Squamous Epith Cells Few Urine Bacteria None SARS-CoV-2 (PCR) Negative SARS-CoV-2 09/13/21 09/13/21 06:39 06:39 WBC 1.40 L* RBC 2.72 L Hgb 8.3 L Hct 25.3 L MCV 93 MCH 31 MCHC 33 RDW Coeff of Jaclyn 18.8 H Plt Count 244 Neut % (Auto) 64.4 Lymph % (Auto) 16.4 L Barton % (Auto) 17.1 H Eos % (Auto) 0.7 Baso % (Auto) 0.7 Neut # (Auto) 0.90 L Lymph # (Auto) 0.20 L Barton # (Auto) 0.20 Eos # (Auto) 0.00 Baso # (Auto) 0.00 Abs Immat Gran (auto) 0.01 Absolute Retic Percent Retic Immature Retic Fraction Retic Hgb Equivalent Sodium 134 L Potassium 3.8 Chloride 105 Carbon Dioxide 24 BUN 10 Creatinine 0.6 Estimated Creat Clear 43.92 Glucose 91 Calcium 8.5 Urine Color Urine Appearance Urine pH Ur Specific Ryan Urine Protein Urine Glucose (UA) Urine Ketones Urine Blood Urine Nitrite Urine Bilirubin Urine Urobilinogen Ur Leukocyte Esterase Urine RBC Urine WBC Ur Squamous Epith Cells Urine Bacteria SARS-CoV-2 (PCR)
--- NOTE | 2021-09-13 15:33 | CT_ITS ---
Final Report Patient: AYSE NOGUEIRA Facility:?[facility] Patient ID:?[id number] Site Patient ID:?[id number]. Site :?[id number] Study:?CT Chest PE W/ISOVUE 370 95CC-09/13/2021 5:11:41 PM Ordering Physician:Raffy Armendariz Final Report: INDICATION: Left lung cancer, status post debulking/stent. Ongoing cough and sputum.. TECHNIQUE: CT chest PE was acquired with 95 cc Isovue 370 IV contrast. COMPARISON: Chest radiographs from September 12, 2021 and July 31, 2021.. FINDINGS: Heart and vasculature: Contrast opacification of the pulmonary arterial tree is adequate. No sign of pulmonary embolism. Heart size is normal. Coronary artery calcifications are noted. Thoracic aorta and pulmonary artery are normal in caliber. Lungs and pleura: Patchy ground-glass and consolidative opacities are identified in the left lower lobe. A few patchy opacities are also noted within the periphery of the lingula. There is mucous plugging within the left lower lobe. Narrowing of the bronchi and bronchioles extending into the lingula and left lower lobe. The stent is identified within the left mainstem bronchus. No pleural effusions, pleural thickening, or pneumothorax. Lymph nodes/mediastinum: Significant soft tissue attenuation surrounds the left mainstem bronchus with irregular margins. This extends into the AP window and prevascular space (-). The soft tissue also extends into the left hilar region and subcarinal region (). Soft tissue thickening surrounding the left mainstem bronchus and extending into the bronchi of the left upper and lower lobes. There is apposition of the soft tissue attenuation along the mid esophagus. Invasion of the esophagus is not entirely excluded. New portions of the soft tissue attenuation extend to the right mainstem bronchus as well. No right hilar lymphadenopathy is identified. Chest wall: No masses. Upper abdomen: Small hiatal hernia. Bones: Demineralization of visualized bones. IMPRESSION: 1. No pulmonary embolism identified. 2. Left mainstem bronchus irregularity and wall thickening with invasion into the mediastinum and left hilum, consistent with provided history of left lung cancer. Opacities in the left lower lobe may represent postobstructive infectious/inflammatory process, however additional areas of malignancy not entirely excluded in the left lower lobe. Some of the opacities are also related to postobstructive atelectasis given the findings of significant mucous plugging within the left lower lobe. 3. Possible esophageal invasion. Please note that all CT scans at this facility use dose modulation, iterative reconstruction, and/or weight-based dosing when appropriate to reduce radiation dose to as low as reasonably achievable. Dictated by Nick Siddiqui MD @ 09/13/2021 6:03:34 PM (Electronic Signature)
[2021-09-13] MEDS: ACETAMINOPHEN 500 MG TABLET 1000 MG PO (15:52)
[2021-09-13 16:25] LABS: Procalcitonin* 0.14 ng/mL (<0.50)
--- NOTE | 2021-09-13 18:19 | P.IMPN_ITS ---
Exam Const: Vital Signs, click to edit/add: Vital Signs - 24 hr 09/12/21 18:27 09/12/21 21:04 09/12/21 23:06 Temperature 98.8 F 98.8 F Pulse Rate 101 H Pulse Rate [Right] 103 H Respiratory Rate 16 Blood Pressure [Ri ght Arm] 123/78 Pulse Oximetry 95 09/13/21 00:43 09/13/21 03:02 09/13/21 08:00 Temperature 97.8 F 98.2 F 97.8 F Pulse Rate Pulse Rate [Right] 103 H 103 H 103 H Respiratory Rate 24 20 Blood Pressure [Ri ght Arm] 111/66 119/71 126/68 Pulse Oximetry 94 95 94 09/13/21 08:30 09/13/21 14:34 09/13/21 15:00 Temperature 97.6 F Pulse Rate 109 H 116 H Pulse Rate [Right] 106 H 100 Respiratory Rate 22 18 18 Blood Pressure [Ri ght Arm] 120/72 Pulse Oximetry 96 09/13/21 17:07 Temperature 98.3 F Pulse Rate Pulse Rate [Right] 108 H Respiratory Rate 18 Blood Pressure [Ri ght Arm] 127/77 Pulse Oximetry 98 Labs Labs: Laboratory Results - last 24 hr 09/12/21 09/13/21 09/13/21 16:30 06:39 06:39 WBC 1.40 L* RBC 2.72 L Hgb 8.3 L Hct 25.3 L MCV 93 MCH 31 MCHC 33 RDW Coeff of Jaclyn 18.8 H Plt Count 244 Neut % (Auto) 64.4 Lymph % (Auto) 16.4 L Blackford % (Auto) 17.1 H Eos % (Auto) 0.7 Baso % (Auto) 0.7 Neut # (Auto) 0.90 L Lymph # (Auto) 0.20 L [place]ford # (Auto) 0.20 Eos # (Auto) 0.00 Baso # (Auto) 0.00 Abs Immat Gran (auto) 0.01 Sodium 134 L Potassium 3.8 Chloride 105 Carbon Dioxide 24 BUN 10 Creatinine 0.6 Estimated Creat Clear 43.92 Glucose 91 Calcium 8.5 Procalcitonin 0.14 Urine Bacteria None
[2021-09-13] MEDS: OXYCODONE 5 MG TABLET PO (18:29)
--- NOTE | 2021-09-13 18:33 | PC.NURSE ---
Addendum entered by Kalyani Pérez RN 09/13/21 18:50: MD UPDATED ON PAIN WHILE EATING, NO NEW ORDERS AT THIS TIME. Original Note: SHIFT REPORT: PATIENT PLEASANT AND COOPERATIVE, UP IN HALLWAY WITH STAFFING TOLERATING WELL, TOLERATING REGULAR DIET FAIRLY, PATIENT EXPRESSING FEELING THROAT PAIN DOWN TO BELLY WHEN EATING, ALSO EXPRESSING SHOULDER AND BACK PAIN, PRN TYLENOL AND OXYCODONE GIVEN WITH SOME RELIEF. UP IN ROOM SBA WITH STEADY GAIT, TELE SHOWING SINUS TACH. INTERMITTENT COUGH WITH PHLEGM.
[2021-09-13] MEDS: METOPROLOL TARTRATE 25 MG TABLET PO (20:22)
[2021-09-13] MEDS: ADENOSINE 6 MG/2ML INJ IVP (22:20)
--- NOTE | 2021-09-13 22:53 | W.PM.CROSSCO ---
Subjective Subjective Time Seen by Provider: 22:52 Date Seen: 09/13/21 Principal diagnosis: SVT Interval history: patient went into a regular narrow complex tachycardia with a pulse of 154. She was asymptomatic. Other vitals were okay including blood pressure. after discussion of risks and benefits, she was given 6 mg adenosine IV push. She had a brief episode of asystole followed by sinus rhythm with a rate around 100.
[2021-09-13] MEDS: METOPROLOL TARTRATE 1 MG/ML inj 5 MG IVP (23:48)
[2021-09-14] VITALS (20 sets, daily range): BP systolic 113–148; BP diastolic 64–84; PULSE 92–113; RESP 18–20; TEMP 36.4–37.1; O2SAT 93–100
[2021-09-14] MEDS: ADENOSINE 6 MG/2ML INJ IVP (00:18)
[2021-09-14] MEDS: PIPERACILLIN/TAZOBACTAM 3.375 GM in 0.9 % SODIUM CHLORIDE Mini-bag 100 ML IVPB ×3 (02:03→13:41)
[2021-09-14 02:13] LABS: Magnesium* 1.6 mg/dL (1.5-2.6)
[2021-09-14] MEDS: ACETAMINOPHEN 325 MG TABLET PO ×2 (03:39→18:32)
[2021-09-14] MEDS: OXYCODONE 5 MG TABLET PO ×3 (03:40→21:20)
[2021-09-14] MEDS: 0.9 % SODIUM CHLORIDE 1000 ml 1,000 ML IV (05:26)
[2021-09-14] MEDS: METOPROLOL TARTRATE 1 MG/ML inj 5 MG IVP (05:54)
[2021-09-14 07:15] LABS: HCO3 VBG 25 mmol/L (21-28); Lactate* 0.9 mmol/L (0.5-1.9); PCO2 VBG 34 mmHG (40-50); PO2 VBG 72.1 mmHG (25-47); pH VBG 7.473 (7.32-7.43)
--- NOTE | 2021-09-14 07:30 | PC.NURSE ---
SHIFT NOTE -: Pt is A&O. Afebrile. Oxygen saturations >90% on room air. Tele ranged overnight from sinus tach to SVT. Pt given 6mg adenosine x2 and converted back to sinus tach. This AM, pt once again converted to SVT, PRN Metoprolol given per eMAR; pt then had to have a bowel movement, and when she bared down she converted back to sinus tach. Pt does not have s/s of SVT when it occurs. Pt given PRN Oxycodone and Tylenol for upper back pain as well as an active ice, pt reported good relief. Pt up to BR SBA, tolerated well. Pt with a frequent productive cough, greyish/green in color. Pt denies SOB, N&V, and CP.
[2021-09-14 07:40] LABS: Hematocrit 24.8 % (33.0-51.0); Hemoglobin* 8.1 gm/dL (12.0-16.0); Mean Corpuscular HGB Conc 33 gm/dL (32-36); Mean Corpuscular Hemoglobin 31 pg (26-34); Mean Corpuscular Volume 94 fL (80-100); Platelet Count* 227 K/uL (140-440); Red Blood Count 2.65 m/uL (4.00-5.20)
[2021-09-14 07:49] LABS: Slide Review Reflex No; White Blood Count* 1.64 K/uL (4.50-11.00)
[2021-09-14 08:06] LABS: Albumin* 2.8 g/dL (3.3-5.0); Chloride* 103 mmol/L (96-114); Sodium* 133 mmol/L (135-149)
[2021-09-14 08:07] LABS: Potassium* 3.7 mmol/L (3.6-5.1)
[2021-09-14] MEDS: GI COCKTAIL (VISC LIDO/ANTACID) 30 ML PO (08:07)
[2021-09-14 08:09] LABS: Creatinine* 0.6 mg/dL (0.5-1.5); Est. Creatinine Clearance* 43.92
[2021-09-14 08:10] LABS: Alanine Aminotransferase* 49 U/L (4-35); Alkaline Phosphatase* 68 U/L (40-150); Aspartate Amino Transferase* 24 U/L (12-35); Bilirubin Total* 0.4 mg/dL (0.1-1.5); Blood Urea Nitrogen* 11 mg/dL (7-30); Calcium* 8.3 mg/dL (8.4-10.6); Carbon Dioxide* 23 mmol/L (20-32); Gamma Glutamyl Transpeptidase* 70 U/L (8-55); Glucose* 95 mg/dL (60-115); Magnesium* 1.5 mg/dL (1.5-2.6); Total Protein* 5.4 g/dL (6.0-8.3)
[2021-09-14] MEDS: MAGNESIUM IV 2 GM/50 ML PIGGYBACK IVPB (08:15)
[2021-09-14 08:26] LABS: C Reactive Protein* 13.9 mg/dL (0.5-1.0); Troponin I* < 0.01 ng/mL (0.01-0.04)
[2021-09-14] MEDS: IPRAT-ALBUT 0.5-2.5 MG/3 ML NEB 1 NEB IH ×4 (09:02→21:18)
[2021-09-14] MEDS: POTASSIUM CHLORIDE 10 MEQ CAPSULE ER 20 MEQ PO (09:03)
[2021-09-14] MEDS: APIXABAN 5 MG TABLET PO ×2 (09:03→21:21)
[2021-09-14] MEDS: MAGNESIUM OXIDE 400 MG TABLET PO (09:04)
[2021-09-14] MEDS: FAMOTIDINE 20 MG TABLET PO ×2 (09:04→21:19)
[2021-09-14] MEDS: LACTOBACILLUS ACIDOPHILUS 1 TABLET 1 TAB PO (09:04)
[2021-09-14] MEDS: SODIUM CHLORIDE 0.9 % (FLUSH) 10 ML SYRINGE IVF ×2 (10:18→21:18)
--- NOTE | 2021-09-14 10:38 | NUTR.NU ---
Nutrition Update: RDN attempt to visit with patient regarding diet related to recent diagnosis of squamous cell carcinoma of the left lung, and as of recently undergoing treatment. RDN spoke to patient's nurse whom reported a nutrition visit is not appropriate at this time. RDN will continue to monitor and follow-up prn.
--- NOTE | 2021-09-14 15:56 | PC.NURSE ---
shift note: pt with orthostatic change this a.m. Pt 114/64 supine; 100/59 while sitting. HR increased from 95 supine to 108 sitting. Unable to get clear BP while pt standing due to pt becoming dizzy and felt bilat l/e weakening. Pt placed in supine position with l/e elevated in recliner. Dr. Vinson notified. Lorudy held this a.m. symptoms resolved after pt supine for approx 20 mins. LS with crkls bibasilar. pt continues to produce green/melvin phlegm with cough. IV patent. Pt tearful this afternoon after conversation with hospitalist.
--- NOTE | 2021-09-14 16:01 | PC.NURSE ---
shift note: tele monitor with NSR throughout the day
--- NOTE | 2021-09-14 16:51 | P.IMPN_ITS ---
Progress Note: A&P Assessment and plan (1) SVT (supraventricular tachycardia): Status: Acute Assessment and Plan: Brief episodes. This was extinguished with Valsalva during bowel movement and adenosine previously. Seems to be prone to in and out of this sinus tachyarrhythmia. I am going to replace her magnesium this morning and give her blood transfusion. I think the therapeutic break from chemotherapy and radiation will also help her arrhythmia occurrence. 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 (3) Anemia: Status: Acute Assessment and Plan: 2 units packed red blood cells (4) Chemotherapy induced neutropenia: Status: Acute Assessment and Plan: stable. (5) Pneumonia: Status: Acute Assessment and Plan: Postobstructive previously. procalcitonin is reassuring. Subjective Interval history: nterval history: Daily Progress Note - Hospital Medicine Day #: 2 CC:? Hypotension, AFib RVR, SVT, squamous cell lung cancer OVERNIGHT UPDATES FROM STAFF & MED, LAB, IMAGING UPDATES This is a 70-year-old with locally extensive squamous cell lung cancer of the left lung diagnosed earlier this year who presented after feeling poorly during radiation on the day of admission.? She has been in and out AFib with RVR, last night she was in SVT. When she is in these arrhythmias she feels lightheaded, presyncopal and is hypotensive. He received IV adenosine last night. She received IV metoprolol twice. When she is in sinus she is typically mildly tachycardic. However her blood pressure is much improved. She generally feels weak but improved from when she has an arrhythmia. 120/72, 126/68 Pulse has been low 100s But has had episodes up to the 150s. Last night it was regular there was evidence of SVT. Respiratory rate 18 Pulse ox 96% on room air Weight 66.6 kilos Continued neutropenia. However stable. Hemoglobin has drifted from 8.7 down to 8.1 Procalcitonin has been unremarkable as is the troponin. Her C reactive protein is 13.9. Her magnesium has been low normal at 1.5. CT chest yesterday IMPRESSION: 1. No pulmonary embolism identified. 2. Left mainstem bronchus irregularity and wall thickening with invasion into the mediastinum and left hilum, consistent with provided history of left lung cancer. Opacities in the left lower lobe may represent postobstructive infectious/inflammatory process, however additional areas of malignancy not entirely excluded in the left lower lobe. Some of the opacities are also related to postobstructive atelectasis given the findings of significant mucous plugging within the left lower lobe. 3. Possible esophageal invasion. Review of Systems: See subjective Cardiac:? No new chest pain/pressure/palpitations.? Respiratory:? no new dyspnea.? GI: No abdominal bloating? ? Objective:? Chronically ill-appearing.? Thin, Alopecia, pale. Vitals: see above Lungs:? No respiratory distress.? Diffuse rhonchi at the bases Cardiac: S1S2. ? Disposition/Potential discharge - Likely to return to previous living situation. However we did talk about custodial facilities up near her home in [place] for at least rehab, short term. She is having trouble thriving and feeling cared for at her children's homes. Total time is 35 minutes with greater than 50% spent in counseling and coordination of care. Exam Const: Vital Signs, click to edit/add: Vital Signs - 24 hr 09/13/21 17:07 09/13/21 20:00 09/13/21 23:00 Temperature 98.3 F 98.3 F Pulse Rate Pulse Rate [Right] 108 H 110 H Respiratory Rate 18 18 20 Blood Pressure Blood Pressure [Ri ght Arm] 127/77 120/56 L Pulse Oximetry 98 99 09/14/21 00:00 09/14/21 01:38 09/14/21 03:49 Temperature 98.2 F 98.3 F Pulse Rate 109 H Pulse Rate [Right] 108 H 105 H Respiratory Rate 20 18 Blood Pressure Blood Pressure [Ri ght Arm] 125/71 120/70 Pulse Oximetry 96 97 09/14/21 08:00 09/14/21 12:00 09/14/21 15:54 Temperature 98.3 F 97.5 F L 98.5 F Pulse Rate 92 104 H Pulse Rate [Right] 95 106 H Respiratory Rate 20 18 20 Blood Pressure 115/67 Blood Pressure [Ri ght Arm] 114/64 134/84 Pulse Oximetry 96 96 95 09/14/21 16:03 09/14/21 16:15 Temperature 98.5 F 98.5 F Pulse Rate 106 H Pulse Rate [Right] 104 H Respiratory Rate 20 20 Blood Pressure 113/67 Blood Pressure [Ri ght Arm] 115/67 Pulse Oximetry 95 95 Labs Labs: Laboratory Results - last 24 hr 09/13/21 09/14/21 09/14/21 06:39 06:35 06:35 WBC 1.64 L* RBC 2.65 L Hgb 8.1 L Hct 24.8 L MCV 94 MCH 31 MCHC 33 Plt Count 227 VBG pH VBG pCO2 VBG pO2 VBG HCO3 Sodium 133 L Potassium 3.7 Chloride 103 Carbon Dioxide 23 BUN 11 Creatinine 0.6 Estimated Creat Clear 43.92 Glucose 95 Lactate Calcium 8.3 L Magnesium 1.6 1.5 Total Bilirubin 0.4 GGT 70 H AST 24 ALT 49 H Alkaline Phosphatase 68 Troponin I < 0.01 L C-Reactive Protein 13.9 H Total Protein 5.4 L Albumin 2.8 L Blood Type Antibody Screen Crossmatch ([facility]) 09/14/21 09/14/21 06:35 06:35 WBC RBC Hgb Hct MCV MCH MCHC Plt Count VBG pH 7.473 H VBG pCO2 34 L VBG pO2 72.1 H VBG HCO3 25 Sodium Potassium Chloride Carbon Dioxide BUN Creatinine Estimated Creat Clear Glucose Lactate 0.9 Calcium Magnesium Total Bilirubin GGT AST ALT Alkaline Phosphatase Troponin I C-Reactive Protein Total Protein Albumin Blood Type B Positive Antibody Screen NEGATIVE Crossmatch ([facility]) See Detail
[2021-09-14] MEDS: METOPROLOL TARTRATE 25 MG TABLET PO (21:19)
[2021-09-14] MEDS: SENNOSIDES/DOCUSATE TABLET 1 TAB PO (21:23)
--- NOTE | 2021-09-14 22:39 | PC.NURSE ---
Shift Note [id number]: 2 units PRBC infused without difficulty. Increased discomfort in upper back with eating, pt declined GI cocktail. Oxycodone and Tylenol given PRN. Few bites of dinner consumed, pt also drank 100% of strawberry ensure. Updated daughter Karla via telephone. Tele removed for shower this evening, aware. HR post shower= 113 and currently 109. Pt denies SOB or palpitations.
[2021-09-15 03:15] VITALS: BP 167/99; PULSE 111; RESP 20; TEMP 37.5; O2SAT 98
--- NOTE | 2021-09-15 05:07 | PC.NURSE ---
SHIFT NOTE 23-: Pt is A&O. Tele reads sinus tach in the 90's to low 100's. Pt denies CP. Afebrile. Oxygen saturations >90% on room air, pt has SOB with exertion and a productive cough. Pt rated pain 0-2/10, denied need for pain medication, ice pack to upper back. Pt up to the BR with SBA. Uneventful night.
[2021-09-15] MEDS: OXYCODONE 5 MG TABLET PO (07:02)
[2021-09-15 07:30] LABS: Hematocrit 33.5 % (33.0-51.0); Hemoglobin* 11.3 gm/dL (12.0-16.0); Mean Corpuscular HGB Conc 34 gm/dL (32-36); Mean Corpuscular Hemoglobin 30 pg (26-34); Mean Corpuscular Volume 90 fL (80-100); Platelet Count* 188 K/uL (140-440); Red Blood Count 3.74 m/uL (4.00-5.20)
[2021-09-15 07:43] LABS: Albumin* 3.1 g/dL (3.3-5.0); Sodium* 132 mmol/L (135-149)
[2021-09-15 07:46] LABS: Creatinine* 0.6 mg/dL (0.5-1.5); Est. Creatinine Clearance* 43.92; Total Protein* 5.8 g/dL (6.0-8.3)
[2021-09-15 07:47] LABS: Blood Urea Nitrogen* 10 mg/dL (7-30); Calcium* 8.4 mg/dL (8.4-10.6); Magnesium* 1.7 mg/dL (1.5-2.6)
[2021-09-15 07:53] LABS: NT Pro B Type NatriureticPept* 2380 PG/mL (0-125)
[2021-09-15 07:55] VITALS: BP 133/81; PULSE 111; PULSE 113; RESP 20; TEMP 37.4; O2SAT 93
[2021-09-15 08:10] LABS: Chloride* 103 mmol/L (96-114); Potassium* 3.7 mmol/L (3.6-5.1)
[2021-09-15 08:14] LABS: Alanine Aminotransferase* 42 U/L (4-35); Alkaline Phosphatase* 78 U/L (40-150); Aspartate Amino Transferase* 22 U/L (12-35); Bilirubin Total* 1.2 mg/dL (0.1-1.5); Carbon Dioxide* 26 mmol/L (20-32); Glucose* 103 mg/dL (60-115)
--- NOTE | 2021-09-15 09:09 | PC.NURSE ---
Critical value reported by lab - WBC 1.40, Dr. Vinson notified.
[2021-09-15 09:22] LABS: Procalcitonin* 0.19 ng/mL (<0.50)
[2021-09-15] MEDS: ACETAMINOPHEN 325 MG TABLET PO (09:47)
[2021-09-15] MEDS: POTASSIUM CHLORIDE 10 MEQ CAPSULE ER 20 MEQ PO (09:48)
[2021-09-15] MEDS: MAGNESIUM OXIDE 400 MG TABLET PO (09:49)
[2021-09-15] MEDS: LACTOBACILLUS ACIDOPHILUS 1 TABLET 1 TAB PO (09:49)
[2021-09-15] MEDS: METOPROLOL TARTRATE 25 MG TABLET PO (09:50)
[2021-09-15] MEDS: APIXABAN 5 MG TABLET PO (09:50)
[2021-09-15] MEDS: FAMOTIDINE 20 MG TABLET PO (09:50)
[2021-09-15] MEDS: IPRAT-ALBUT 0.5-2.5 MG/3 ML NEB 1 NEB IH ×2 (09:51→13:59)
[2021-09-15] MEDS: SODIUM CHLORIDE 0.9 % (FLUSH) 10 ML SYRINGE IVF (09:59)
[2021-09-15 11:00] VITALS: BP 104/76; PULSE 92; RESP 20; TEMP 37; O2SAT 94
--- NOTE | 2021-09-15 12:27 | PC.SOCIAL ---
Discharge planning: Met with pt who confirms she has been living with her son at his home in [place]. Pt shared she is interested in moving back to the area of her own home in [place], [place]. Pt states she does not have anyone to assist her at home and is inteterested in a long term in the [place] area. parking worker contacted the following facilities: [facility], [facility], [facility], and [facility]. None of these facilities currently hae a bed available. Fernando at [facility] stated information can be faxed and they will follow up with pt and family when a bed becomes available at their facility. Met with pt who requested information be sent to [facility] and is aware there is currently no availability. Pt is planning to discharge today to her son's home in [place] and will follow up directly with the long term in [place] when they contact her if she is interested in placement at that time. parking worker faxed requested information to [facility] for pt to be placed in the waiting list.
[2021-09-15 14:07] LABS: Slide Review Reflex No
--- NOTE | 2021-09-15 21:11 | P.DS_ITS ---
DS: Providers Provider Date of admission: 09/12/21 16:22 Primary care physician: Not a Local Provider Admitting Clinician: Meagan Vinson MD Consults: 09/12/21 15:05 Consult to Respiratory Therapy [CONS] Routine Comment: Reason(s) for RT Consult:: Consult 09/12/21 15:10 Consult to Occupational Therapy [CONS] Routine Comment: Reason(s) for OT Consult:: Evaluate and Treat Any Restrictions?:: No Restrictions Consult to Physical Therapy [CONS] Routine Comment: Reason(s) for PT Consult:: Evaluate and Treat Any Restrictions?:: No Restrictions Consult to Receiver/Laborer [CONS] Routine Comment: Reason for Consult:: Social Service Consult Attending Physician on discharge: Jared Walker MD DS: Diagnosis Discharge Diagnosis (1) SVT (supraventricular tachycardia): Status: Acute Problem details: Discharged on metoprolol tartrate 25 mg b.i.d.. [place] this was related to her neutropenia, treatment, underlying heart disease. She felt much better with her electrolytes corrected, hydrated and transfusion. No further episodes of AFib RVR or SVT. She was continued and discharged on chronic anticoagulation. (2) Anemia: Status: Acute Problem details: Improved after transfusion, 2 units (3) Squamous cell lung cancer: Status: Acute Problem details: Patient will reestablish care with [facility] in [place] (4) Pneumonia: Status: Acute Problem details: IV Zosyn was converted to p.o. Ceftin. (5) Chemotherapy induced neutropenia: Status: Acute Problem details: Stable. DS: Summary Hospital Course Hospital Course: HOSPITALIST DISCHARGE SUMMARY ATTENDING PHYSICIAN: Kala Vinson MD FINAL DIAGNOSIS: Tachyarrhythmias, SVT and AFib Squamous cell carcinoma, stage IIIB, left lung Chemotherapy-induced anemia HOSPITAL FOLLOWUP ISSUES: 1. Oncology. Patient is leaving the [facility] treatment plan and pursuing treatment with [facility]. This is due to family discourse and being closer to home. She was happy with her radiation oncologist and medical oncologist. 2. Postobstructive pneumonia, left lung. On oral Ceftin at discharge 3. Anemia, transfused REFERRALS WHILE ADMITTED: None REFERRALS AFTER DISCHARGE: Oncology BRIEF HOSPITAL COURSE: Shannon is a 70-year-old previous heavy smoker who was diagnosed earlier this year with stage IIIB squamous cell lung cancer of the left lung. She had a near complete collapse of her left lung. [facility] specialists were able to debulk and stent her tumor burden. She has invasion into the mediastinum and esophagus. She has significant genetic mutations in her tumor. She had nearly finished her chemo and radiation. However on the last day of radiation she became near syncopal at the actual radiation appointment across the street for the [facility]. She was hypotensive and weak. She was brought by EMS and found to be in AFib with RVR and dehydrated. She was anemic. We transfused her, we corrected her electrolyte abnormalities in her dehydration. She felt much improved. We attributed her episodes of AFib with RVR and episodes of SVT to her low magnesium and anemia. I changed her metoprolol from succinate to tartrate, 25 mg b.i.d. Of the day of discharge she was ambulating, felt stronger and desired to go back to her home in [place]. I discussed her case with oncologist Dr. Zion Burr with [facility] in [place] and he will be seeing her early next week. The appointment was set. VITAL SIGN, MEDICATION, LAB/MICRO, IMAGING SUMMARY (full details available in account tabs or by records request) 104/76. Pulse 92. Respiration 20. Afebrile. 94% on room air. Neutropenia. 1.44 her white blood cell count., 64% neutrophils. ANC 921. Hemoglobin was up to 11.3 from 8.1 Normal platelets. Status post 2 units of red blood cells. Chronic subtle hypo natremia. Normal creatinine. CRP stable Negative blood cultures and urine culture CT chest IMPRESSION: 1. No pulmonary embolism identified. 2. Left mainstem bronchus irregularity and wall thickening with invasion into the mediastinum and left hilum, consistent with provided history of left lung cancer. Opacities in the left lower lobe may represent postobstructive infectious/inflammatory process, however additional areas of malignancy not entirely excluded in the left lower lobe. Some of the opacities are also related to postobstructive atelectasis given the findings of significant mucous plugging within the left lower lobe. 3. Possible esophageal invasion. DISCHARGE MEDICATIONS: See Reconciled list REVIEW OF SYSTEMS No new chest pain or dyspnea Pain controlled No voiding difficulties Tolerating diet challenge PHYSICAL EXAM: CONSTITUTIONAL: VITAL SIGNS: see record. HEENT: Normocephalic, atraumatic. PERRL, EOMI, conjunctivae pink, no scleral icterus. Ears and nose externally normal. Pharynx normal. NECK: No JVD. No carotid bruit, no thyromegaly, no adenopathy. CHEST: Clear to auscultation bilaterally. HEART: S1 and S2 normal. Edema ABDOMEN: Soft, nontender. Normal bowel sounds. MUSCULOSKELETAL: No gross joint deformity or swelling. NEURO: Cranial nerves intact. Grossly intact. No asymmetric findings. SKIN: No rashes, petechiae, concerning changes PSYCHIATRIC: Mood euthymic. DISPOSITION: Time spent on discharge 37 minutes. Time Spent with Patient Time attestation: Total time spent providing and/or coordinating discharge services: Exam Const: Vital Signs, click to edit/add: Vital Signs - 24 hr 09/14/21 21:30 09/14/21 23:44 09/14/21 23:51 Temperature 98.5 F 98.3 F Pulse Rate 104 H 96 Pulse Rate [Right] 108 H Respiratory Rate 20 20 Blood Pressure 115/65 Blood Pressure [Ri ght Arm] 135/79 Pulse Oximetry 95 100 09/15/21 03:15 09/15/21 07:55 09/15/21 11:00 Temperature 99.5 F 99.3 F 98.6 F Pulse Rate 111 H Pulse Rate [Right] 111 H 111 H 92 Respiratory Rate 20 20 20 Blood Pressure Blood Pressure [Ri ght Arm] 167/99 H 133/81 104/76 Pulse Oximetry 98 93 94 DS: Data Data Completed and Pending Labs on day of discharge: Labs from last 24 hours 09/15/21 09/15/21 09/14/21 06:43 06:43 06:35 WBC 1.40 L* RBC 3.74 L Hgb 11.3 L Hct 33.5 MCV 90 MCH 30 MCHC 34 Plt Count 188 Sodium 132 L Potassium 3.7 Chloride 103 Carbon Dioxide 26 BUN 10 Creatinine 0.6 Estimated Creat Clear 43.92 Glucose 103 Calcium 8.4 Magnesium 1.7 Total Bilirubin 1.2 AST 22 ALT 42 H Alkaline Phosphatase 78 C-Reactive Protein 15.0 H NT-Pro-B Natriuret Pep 2380 H Total Protein 5.8 L Albumin 3.1 L Procalcitonin 0.19 Crossmatch ([facility]) See Detail Preliminary micro results at discharge 09/12/21 11:03 Blood Culture - Preliminary Blood NO GROWTH AFTER 72 HOURS 09/12/21 10:40 Blood Culture - Preliminary Blood NO GROWTH AFTER 72 HOURS Discharge Plan Discharge Disposition: Home w/ Parent or Adult Date of Admission: 09/12/21 16:22 Attending Provider on Discharge: Kala Vinson Primary Care Provider: Provider,Not a Local Condition: Improved Anticipated Discharge Date/Time: 09/15/21 11:11 Discharge Medications: New cefuroxime axetil 500 mg Tablet 500 mg PO BIDWM Qty: 14 0RF metoprolol tartrate 25 mg Tablet 25 mg PO BID Qty: 60 0RF Continued acetaminophen 500 mg tablet 1,000 mg PO .TIDAC PRN0RF Eliquis 5 mg tablet 5 mg PO BID 0RF cholecalciferol (vitamin D3) 25 mcg (1,000 unit) capsule 1,000 unit PO DAILY 0RF famotidine 20 mg tablet 20 mg PO BID 0RF ipratropium-albuterol 0.5 mg-3 mg(2.5 mg base)/3 mL solution for nebulization 3 ml inhalation QID 0RF melatonin 3 mg capsule 3 mg PO HS PRN0RF Florajen Acidophilus 20 billion cell capsule 10 mg PO DAILY 0RF potassium chloride 20 mEq tablet extended release 20 meq PO DAILY 0RF prochlorperazine maleate 10 mg tablet 10 mg PO Q6H PRN0RF Changed magnesium oxide 400 mg (241.3 mg magnesium) tablet 400 mg PO TID Qty: 90 0RF Discontinued metoprolol succinate [Toprol XL] 50 mg tablet extended release 24 hr 25 mg PO DAILY 0RF Discharge Orders: Discharge Order (Routine); Ordered 09/15/21 Ordered By: Kala Vinson Patient Education: Cefuroxime (By mouth), Metoprolol (By mouth), Supraventricular Tachycardia (DC) Activity Level: Activity as Tolerated Discharge Diet: Regular Follow Up Appointments: Zion Burr MD [Other] - 09/19/21 1:00 pm Provider,Not a Local [Primary Care Provider] - Forms: [employer] Info Instructions
[2021-09-21 16:06] LABS: Lab Add On Test New Spec Needed
== END 2021-09-15 17:37 | disposition home or self-care (01) | DRG 308 ==
LOC: ED 15:53 → MEDSURG 17:49
PROVIDERS: Family Medicine; Admitting Provider Family Medicine; Emergency Provider Emergency Medicine; Visit Provider Family Medicine
DX: I47.1 Supraventricular tachycardia (principal); J18.9 Pneumonia, unspecified organism; C34.92 Malignant neoplasm of unspecified part of left bronchus or lung; E87.1 Hypo-osmolality and hyponatremia; D64.81 Anemia due to antineoplastic chemotherapy; D70.1 Agranulocytosis secondary to cancer chemotherapy; I48.0 Paroxysmal atrial fibrillation; J44.9 Chronic obstructive pulmonary disease, unspecified; I95.9 Hypotension, unspecified; E78.5 Hyperlipidemia, unspecified; Z86.711 Personal history of pulmonary embolism; Z79.01 Long term (current) use of anticoagulants; Z87.891 Personal history of nicotine dependence; I11.0 Hypertensive heart disease with heart failure; T44.7X6A Underdosing of beta-adrenoreceptor antagonists, initial encounter; Z91.138 Patient's unintentional underdosing of medication regimen for other reason; T45.1X5A Adverse effect of antineoplastic and immunosuppressive drugs, initial encounter
CPT/HCPCS: 36415; 36430; 71045; 71260; 80048; 80053; 80076; 81001; 82803; 82977; 83605; 83735; 83880; 84145; 84484; 85025; 85027; 85045; 85610; 86140; 86850; 86900; 86901; 86922; 87040; 87086; 87635; 93005; 93306; 94640; 97110; 97112; 97116; 97162; 97166; 97535; 99285; 99291; A9270; J0153; J2543; J3475; J7030; P9016; Q9967